=== PATIENT | male | born 1985 | race Caucasian/White ===

== ENCOUNTER 2024-04-01 14:59 | Emergency (ER) | payer SELFPAY ==
[~2024-04-01] VITALS: Ht 180.3 cm; Wt 74.6 kg
[2024-04-01] MEDS ORDERED: AMOX500C PO (15:43)
[2024-04-01 16:28] VITALS: BP 134/87; TEMP 97.6; O2SAT 97
== END 2024-04-01 16:28 | disposition home or self-care (01) ==
LOC: M ED 14:59
DX: J02.0 Streptococcal pharyngitis (principal)

== ENCOUNTER 2024-05-14 14:34 | Emergency (ER) | payer OTHER, SELFPAY ==
[~2024-05-14] VITALS: Ht 180.3 cm; Wt 72.0 kg
[~2024-05-14 14:34] MED LIST: AMOX500C PO
[2024-05-14] MEDS: ACETAMINOPHEN 500 MG TAB PO ONE (16:50)
[2024-05-14] MEDS ORDERED: IBUP-1022 PO (18:49)
[2024-05-14] MEDS ORDERED: METH-1164 PO (18:49)
[2024-05-14 18:54] VITALS: BP 119/78; TEMP 96.8; O2SAT 99
== END 2024-05-14 19:00 | disposition home or self-care (01) ==
LOC: M ED 14:34
DX: S09.90XA Unspecified injury of head, initial encounter (principal); S13.4XXA Sprain of ligaments of cervical spine, initial encounter; W22.8XXA Striking against or struck by other objects, initial encounter; Y92.9 Unspecified place or not applicable; Y93.9 Activity, unspecified; Y99.0 Civilian activity done for income or pay; M25.78 Osteophyte, vertebrae

== ENCOUNTER 2024-07-23 02:32 | Emergency (ER) | payer OTHER, SELFPAY ==
[~2024-07-23] VITALS: Ht 180.3 cm; Wt 69.7 kg
[~2024-07-23 02:32] MED LIST changes: +IBUP-1022 PO; +METH-1164 PO
[2024-07-23 05:47] VITALS: BP 116/69; TEMP 97.7; O2SAT 99
== END 2024-07-23 05:49 | disposition home or self-care (01) ==
LOC: M ED 02:32
DX: S63.501A Unspecified sprain of right wrist, initial encounter (principal); V03.12XA Pedestrian on skateboard injured in collision with car, pick-up truck or van in traffic accident, initial encounter; F17.200 Nicotine dependence, unspecified, uncomplicated; Y92.410 Unspecified street and highway as the place of occurrence of the external cause; Y93.51 Activity, roller skating (inline) and skateboarding; Y99.9 Unspecified external cause status; Z79.1 Long term (current) use of non-steroidal anti-inflammatories (NSAID); Z79.899 Other long term (current) drug therapy